=== PATIENT | male | born 1985 ===

== ENCOUNTER 2018-11-30 18:16 | Emergency (ER) | payer OTHER ==
[~2018-11-30] VITALS: Ht 180.3 cm; Wt 93.0 kg
[2018-11-30 18:19] VITALS: BP 129/79
== END 2018-11-30 18:48 | disposition home or self-care (01) ==
LOC: ED 18:20
DX: L02.811 Cutaneous abscess of head [any part, except face] (principal); F17.210 Nicotine dependence, cigarettes, uncomplicated
CPT/HCPCS: 99283; 99406